=== PATIENT | male | born 1965 | race Two or more races ===

== ENCOUNTER 2021-09-29 21:59 | Emergency (ER) | payer OTHER ==
[~2021-09-29] VITALS: Ht 172.7 cm; Wt 79.4 kg
[2021-09-29] MEDS ORDERED: ZESTRIL10 M1 PO (22:05)
[2021-09-29] MEDS ORDERED: NAPROXEN SODIU375 M1 PO (23:48)
== END 2021-09-30 00:06 | disposition home or self-care (01) ==
LOC: ER 21:59
DX: S62.647A Nondisplaced fracture of proximal phalanx of left little finger, initial encounter for closed fracture (principal); X58.XXXA Exposure to other specified factors, initial encounter; Y93.67 Activity, basketball; Y92.89 Other specified places as the place of occurrence of the external cause

== ENCOUNTER 2021-10-05 10:37 | Outpatient (CLI) | payer OTHER ==
[~2021-10-05 10:37] MED LIST: NAPROXEN SODIU375 M1 PO; ZESTRIL10 M1 PO
== END 2021-10-05 10:38 | disposition home or self-care (01) ==
LOC: LAB 10:37
PROVIDERS: ATTEND Orthopaedic Surgery
DX: D68.8 Other specified coagulation defects (principal); I10 Essential (primary) hypertension; Z76.89 Persons encountering health services in other specified circumstances

== ENCOUNTER 2021-10-09 11:52 | Day surgery (SDC) | payer OTHER | END 2021-10-09 20:51 | disposition home or self-care (01) | LOC: CIR.AMB 11:52 | PROVIDERS: ATTEND Orthopaedic Surgery | DX: S62.617A Displaced fracture of proximal phalanx of left little finger, initial encounter for closed fracture (principal); I10 Essential (primary) hypertension; Z86.16 Personal history of COVID-19; K21.9 Gastro-esophageal reflux disease without esophagitis; Z20.822 Contact with and (suspected) exposure to COVID-19 ==